=== PATIENT | female | born 1955 | race Caucasian/White ===

== ENCOUNTER 2019-11-22 09:54 | Outpatient (CLI) | payer MEDICAID, SELFPAY ==
--- NOTE | 2019-11-22 | XR_ITS ---
WS: [id number] Left knee, 3 views, 11/22/2019 Clinical Data: ACUTE MENISCAL TEAR LATERAL LEFT Comparison: None. Findings: No fractures or dislocations are seen. The joint spaces are normal. The patella is intact. The soft t issues are unremarkable. XR/XR knee LT 3V* [id number] Impression: Negative left knee.
--- NOTE | 2019-11-22 | XR_ITS ---
WS: [id number] Left femur and thigh, 11/22/2019 Clinical Data: ACUTE MENISCAL TEAR LATERAL LEFT Comparison: None. Findings: No fractures or dislocations are seen. The soft tissues are normal. The visualized knee shows no abno rmalities. The left hip is unremarkable. XR/XR femur LT min 2V* [id number] Impression: Negative left femur and thigh.
== END 2019-11-22 09:55 | disposition home or self-care (01) ==
LOC: RADOUTREAD 10:30
PROVIDERS: Family Provider Family Medicine; Visit Provider Family Medicine
DX: S83.282A Other tear of lateral meniscus, current injury, left knee, initial encounter (principal); W19.XXXA Unspecified fall, initial encounter

== ENCOUNTER 2020-08-28 15:11 | Outpatient (CLI) | payer MEDICAID, SELFPAY ==
--- NOTE | 2020-08-28 15:17 | XR_ITS ---
WS: [id number] SCREENING DEXA SCAN [employer] CLINICAL INFORMATION: OSTEOPOROSIS COMPARISON: None. FINDINGS: The L1-L4 bone mineral density measures 1.002 g/cm2. This corresponds to a T score score of -1.5 and Z score of -1.1. Left femoral neck bone mineral density measures 0.834 g/cm2. This corresponds to a T score of -1.4 an d Z score of -1.0. Right femoral neck bone mineral density measures 0.827 g/cm2. This corresponds to a T score -1.4of an d Z score of -1.1. Mean femoral neck bone mineral density measures 0.830 g/cm2. This corresponds to a T score of -1.4 an d Z score of -1.0. XR/XR DEXA axial skeleton* [id number] IMPRESSION: Osteopenia Patient's FRAX calculated 10 year probability for major osteoporotic fracture i s 33.3 % and osteoporotic hip fracture is 4.7%.
== END 2020-08-28 15:12 | disposition home or self-care (01) ==
LOC: RADWPI 15:13
PROVIDERS: Family Provider Family Medicine; Visit Provider Family Medicine
DX: M81.0 Age-related osteoporosis without current pathological fracture (principal)
CPT/HCPCS: 77080

== ENCOUNTER 2021-02-28 06:39 | Emergency (ER) | payer MEDICAID, SELFPAY ==
[2021-02-28] VITALS (7 sets, daily range): BP systolic 131–190; BP diastolic 88–128; PULSE 95–114; RESP 18–25; TEMP 36.4–37.2; O2SAT 92–99; BMI 48.9
--- NOTE | 2021-02-28 06:41 | ECG_ITS ---
[facility] Test Date: 2021-02-28 Pat Name: Vera Wolfe Department: Room: Gender: Female [employer]ile[employer]: : 1955 Requested By: Bret Bustos Order Number: [id number] Reading MD: OLIVIER ROMO Measurements Intervals [place] Rate: 116 P: 62 SC: 96 QRS: -1 QRSD: 93 T: 46 QT: 305 QTc: 424 Interpretive Statements SINUS TACHYCARDIA WITH SHORT SC INTERVAL ABNORMAL RHYTHM ECG No previous ECG available for comparison Electronically Signed On 02-28-2021 20:42:24 CDT by OLIVIER ROMO [id number] f
--- NOTE | 2021-02-28 06:41 | CT_ITS ---
WS: [id number] CT HEAD NONCONTRAST HISTORY: Fall/LOC TECHNIQUE: Contiguous axial imaging performed through the brain in 2.5 mm imaging. Bone and soft tiss ue windows. Sagittal and coronal reformats reviewed. All CT scans at [facility] use at ast one of these dose optimization techniques: automated exposure control; mA and/or kV adjustment pe r patient size (includes targeted exams where dose is matched to clinical indication); or iterative r econstruction. DLP: 851.66 mGy.cm COMPARISON: 11/05/2012 and 12/22/2018 No acute intracranial hemorrhage, midline shift or mass effect. No atrophy or prior infarcts or herniation. Mild chronic microvascular ischemic disease. No prior in farcts. There is streak artifact through the posterior fossa and occipital lobe from the skull. Ventricles: Normal size with no hydrocephalus. No inferior displacement of cerebellar tonsils. Paranasal sinuses: Mild mucoperiosteal thickening in the ethmoid air cells. Mastoid air cells: Well pneumatized. Calvarium and scalp: Skull is intact with no soft tissue edema or swelling. CT/CT head wo con* [id number] IMPRESSION: 1. No acute intracranial hemorrhage or edema. 2. Mild atrophy and chronic ischemic disease.
--- NOTE | 2021-02-28 07:13 | ED_ITS ---
HPI - Syncope General: Chief Complaint: Syncope Stated Complaint: back pain, passing in and out, fall Time Seen by Provider: 02/28/21 06:40 History of Present Illness: HPI narrative: 65-year-old female presents emergency room with complaint of a fall. She got up this morning was feeding her cat essentially lost her balance and slipped she fell backwards landed because of other buttock and her back she denies striking her head there is no loss consciousness she never had any chest pain. States she has been weak a lot lately which she relates to a thyroid problem was recently evaluated by her PCP. She not had any vomiting or diarrhea she is not on any anticoagulants. MD complaint: almost passed out Onset (ago): minute(s) Prodromal symptoms: lightheaded Witnessed: No Context: standing up Injuries sustained associated with event: back Associated symptoms: Deny abdominal pain, chest pain, fever(s), headache(s), lightheadedness, nausea, short of breath, vertigo or weakness Treatments prior to arrival: none Review of Systems Const: Denies: fever(s) ENMT: Denies: throat pain, ear or mastoid pain, nasal discharge or nasal congestion Card: Denies: chest pain or lightheadedness Resp: Denies: dyspnea, productive cough or non-productive cough GI: Denies: abdominal pain or nausea : Denies: flank pain, difficulty voiding, dysuria, urinary frequency or urinary urgency Skin/Breast: Denies: rash or pruritus Neuro: Denies: headache(s) or vertigo PFSH ED PFSH: Family History Son Hypertension Asthma Denies family history of Diabetes CAD (coronary artery disease) Clotting disorder Dementia Hyperlipidemia Psychiatric illness Chronic kidney disease (CKD) Suicide Anesthesia complication Bleeding disorder Family history of premature coronary artery disease Lung disease Cancer Stroke Social History Smoking and tobacco status: never smoked Alcohol intake: never Current occupational status: disabled Physical Exam Const: COMMON NORMALS: no acute distress GENERAL APPEARANCE: cooperative and comfortable ORIENTATION/CONSCIOUSNESS: Yes awake, Yes oriented to person, Yes oriented to place and Yes oriented to time HENMT: COMMON NORMALS: normocephalic, atraumatic and hearing grossly normal bi laterally HEAD & SCALP: normocephalic and atraumatic Neck/C-Spine: COMMON NORMALS: full ROM, no lymphadenopathy, supple and no JVD Resp: COMMON NORMALS: normal respiratory effort, No retractions, No use of accessory muscles and clear to auscultation bilaterally AUSCULTATION: clear to auscultation bilaterally Cardio: COMMON NORMALS: no JVD, regular rate, regular rhythm and No murmurs present (Cardio) RATE: regular rate RHYTHM: regular rhythm GI: COMMON NORMALS: Soft to palpation and No hepatosplenomegaly present AUSCULTATION: Yes normoactive bowel sounds PALPATION: Yes Soft to palpation, No Tenderness to palpation present (GI), No Guarding due to palpation present (GI) and Yes No hepatosplenomegaly present Extremity: COMMON NORMALS: normal to inspection, capillary refill normal, no clubbing, cyanosis or edema, no calf tenderness and no pedal edema Neuro: SENSORIUM/ORIENTATION: Yes oriented to person, Yes oriented to place and Yes oriented to time Skin: COMMON NORMALS: no rashes or lesions noted GENERAL SKIN EXAM: no rashes or lesions noted Course Vital Signs: Vital signs: Vital Signs Temperature 98.9 F 02/28/21 09:38 Pulse Rate 95 02/28/21 09:38 Respiratory Rate 21 H 02/28/21 09:38 Blood Pressure 161/88 02/28/21 09:38 Pulse Oximetry 92 02/28/21 09:38 MDM - Syncope MDM Narrative: Medical decision making narrative: Neurologically intact. CT lumbar spine shows some foraminal stenosis but she has no radicular symptoms at this time most which is low back pain. She does have a lot of arthritic changes in her back we will discharge her home with pain medications have her follow-up with her primary care doctor if she has any problems return to the ER if pain is uncontrollable. Lab Data: Labs: Lab Results 02/28/21 02/28/21 02/28/21 Range/Units 07:15 07:15 07:15 WBC 7.4 (4.0-10.0) 10^3/ uL RBC 5.06 (4.1-5.3) 10^6/u L Hgb 14.2 (11.5-15.3) g/dL Hct 46.0 (37.0-47.0) % MCV 90.9 (81-99) fL MCH 28.1 (28.0-34.0) pg MCHC 30.9 (30.0-36.0) g/dL RDW 14.2 (12.1-15.1) % Plt Count 318 (130-400) 10^3/c mm MPV 9.9 (7.4-10.4) fL Neut % (Auto) 60.8 % Lymph % (Auto) 27.5 % Hanson % (Auto) 8.5 % Eos % (Auto) 1.1 % Baso % (Auto) 0.3 % Neut # (Auto) 4.51 (1.8-7.7) 10^3/u L Lymph # (Auto) 2.0 (0.8-4.8) 10^3/u L Hanson # (Auto) 0.6 (0.2-0.9) 10^3/u L Eos # (Auto) 0.1 (0.0-0.8) 10^3/u L Baso # (Auto) 0.0 (0.0-0.1) 10^3/u L Nucleated RBC % (a uto) 0 % Nucleated RBCs # 0.0 /100WBC Sodium 142 (136-145) mmol/L Potassium 5.2 H (3.5-5.1) mmol/L Chloride 104 (98-107) mmol/L Carbon Dioxide 27 (22-29) mmol/L Anion Gap 16.2 (5-19) BUN 13 (8-23) mg/dL Creatinine 0.7 (0.5-0.9) mg/dL GFR Calculation 84.0 L (90-130) mL/min Glucose 107 (65-115) mg/dL Calculated Osmolal ity 295 (285-295) mOsm/k g Calcium 9.5 (8.5-10.5) mg/dL Total Bilirubin 0.3 (0.15-1.2) mg/dL AST 18 (0-32) U/L ALT 12 (0-33) U/L Alkaline Phosphata se 81 (35-105) IU/L Troponin T Baselin e 6 (0-10) ng/L Troponin T 120 Min [place] (0-10) ng/L Delta Troponin T (0-10) ABS# Total Protein 6.9 (6.6-8.7) g/dL Albumin 4.4 (3.5-5.2) g/dL Globulin 2.5 (1.3-4.6) g/dL Urine Color (Yellow) Urine Appearance (CLEAR) Urine pH (5-7) Ur Specific Gravit y (1.005-1.030) Urine Protein (Negative) Urine Glucose (UA) (Normal) Urine Ketones (Negative) Urine Blood (Negative) Urine Nitrate (Negative) Urine Bilirubin (Negative) Urine Urobilinogen (Negative) mg/dL Ur Leukocyte Jessica ase (Negative) Urine RBC (0-2) /hpf Urine WBC (0-5) /hpf Ur Squamous Epith Cells (0-5) /hpf Amorphous Sediment Urine Bacteria (NONE) /hpf Hyaline Casts /lpf Other Casts /lpf Urine Mucus /hpf 02/28/21 02/28/21 Range/Units 08:25 09:23 WBC (4.0-10.0) 10^3/ uL RBC (4.1-5.3) 10^6/u L Hgb (11.5-15.3) g/dL Hct (37.0-47.0) % MCV (81-99) fL MCH (28.0-34.0) pg MCHC (30.0-36.0) g/dL RDW (12.1-15.1) % Plt Count (130-400) 10^3/c mm MPV (7.4-10.4) fL Neut % (Auto) % Lymph % (Auto) % Hanson % (Auto) % Eos % (Auto) % Baso % (Auto) % Neut # (Auto) (1.8-7.7) 10^3/u L Lymph # (Auto) (0.8-4.8) 10^3/u L Hanson # (Auto) (0.2-0.9) 10^3/u L Eos # (Auto) (0.0-0.8) 10^3/u L Baso # (Auto) (0.0-0.1) 10^3/u L Nucleated RBC % (a uto) % Nucleated RBCs # /100WBC Sodium (136-145) mmol/L Potassium (3.5-5.1) mmol/L Chloride (98-107) mmol/L Carbon Dioxide (22-29) mmol/L Anion Gap (5-19) BUN (8-23) mg/dL Creatinine (0.5-0.9) mg/dL GFR Calculation (90-130) mL/min Glucose (65-115) mg/dL Calculated Osmolal ity (285-295) mOsm/k g Calcium (8.5-10.5) mg/dL Total Bilirubin (0.15-1.2) mg/dL AST (0-32) U/L ALT (0-33) U/L Alkaline Phosphata se (35-105) IU/L Troponin T Baselin e (0-10) ng/L Troponin T 120 Min [place] 6.00 (0-10) ng/L Delta Troponin T 0 (0-10) ABS# Total Protein (6.6-8.7) g/dL Albumin (3.5-5.2) g/dL Globulin (1.3-4.6) g/dL Urine Color Yellow (Yellow) Urine Appearance Hazy A (CLEAR) Urine pH 5 (5-7) Ur Specific Gravit y 1.015 (1.005-1.030) Urine Protein Neg (Negative) Urine Glucose (UA) Norm (Normal) Urine Ketones Negative (Negative) Urine Blood 2+ H (Negative) Urine Nitrate Negative (Negative) Urine Bilirubin Neg (Negative) Urine Urobilinogen Norm (Negative) mg/dL Ur Leukocyte Jessica ase Negative (Negative) Urine RBC 5-10 H (0-2) /hpf Urine WBC 5-10 H (0-5) /hpf Ur Squamous Epith Cells 5-10 H (0-5) /hpf Amorphous Sediment Not Reportable Urine Bacteria 1+ H (NONE) /hpf Hyaline Casts 0-4 H /lpf Other Casts Wbc cast /lpf Urine Mucus 2+ /hpf Discharge Plan Discharge Patient Disposition: Home Clinical Impression: Back pain Condition: Stable Prescriptions: New hydrocodone-acetaminophen 5-325 mg tablet 1 tab PO Q6H PRN (Reason: pain) Qty: 15 RF: 0 tizanidine 4 mg capsule 4 mg PO TID PRN (Reason: muscle spasticity) Qty: 14 RF: 0 diclofenac sodium 75 mg tablet,delayed release (DR/EC) 75 mg PO Q12H PRN (Reason: pain) Qty: 20 RF: 0 No Action telmisartan [Micardis] 80 mg tablet 80 mg PO DAILY RF: 0 albuterol sulfate [Ventolin HFA] 90 mcg/actuation HFA aerosol inhaler 2 puff INHALATION Q6H PRN (Reason: Shortness Of Breath) RF: 0 loratadine 10 mg capsule 10 mg PO DAILY RF: 0 Discharge Orders: Discharge ED (Routine); Ordered 02/28/21 Ordered By: Bret Crowell Referrals: Niko Frankel MD [Primary Care Provider] - Discharge Diet: Usual diet Discharge Activity: Limit activity as instructed Patient Instructions: Acute Low Back Pain (ED), Opioid Safety Activity Restrictions/Additional Instructions: Lifting greater than 10 pounds avoid stooping or bending. Follow-up with your primary care doctor within the week. Coding Level of Care Code ED Instrument Checker for Gamaliel Fwd Exam Comprehensive
[2021-02-28 07:25] LABS: Basophils % 0.3 %; Eosinophils # 0.1 10^3/uL (0.0-0.8); Eosinophils % 1.1 %; Hemoglobin 14.2 g/dL (11.5-15.3); Lymphocytes % 27.5 %; Mean Corpuscular HGB Conc 30.9 g/dL (30.0-36.0); Mean Corpuscular Hemoglobin 28.1 pg (28.0-34.0); Mean Corpuscular Volume 90.9 fL (81-99); Mean Platelet Volume 9.9 fL (7.4-10.4); Monocytes # 0.6 10^3/uL (0.2-0.9); Monocytes % 8.5 %; Neutrophils # 4.51 10^3/uL (1.8-7.7); Neutrophils % 60.8 %; Nucleated Red Blood Cells % 0 %; Platelet Count 318 10^3/cmm (130-400); Red Blood Count 5.06 10^6/uL (4.1-5.3); Red Cell Distribution Width 14.2 % (12.1-15.1); White Blood Count 7.4 10^3/uL (4.0-10.0)
[2021-02-28 07:42] LABS: Alanine Aminotransferase 12 U/L (0-33); Albumin Level 4.4 g/dL (3.5-5.2); Alkaline Phosphatase 81 IU/L (35-105); Blood Urea Nitrogen 13 mg/dL (8-23); Calcium 9.5 mg/dL (8.5-10.5); Carbon Dioxide 27 mmol/L (22-29); Chloride 104 mmol/L (98-107); Globulin 2.5 g/dL (1.3-4.6); Glucose 107 mg/dL (65-115); Osmolality Calculated 295 mOsm/kg (285-295); Sodium 142 mmol/L (136-145); Total Bilirubin 0.3 mg/dL (0.15-1.2); Total Protein 6.9 g/dL (6.6-8.7)
[2021-02-28 07:43] LABS: Troponin(5th) Baseline 6 ng/L (0-10)
[2021-02-28 07:48] LABS: Anion Gap 16.2 (5-19); Aspartate Amino Transferase 18 U/L (0-32); Potassium 5.2 mmol/L (3.5-5.1)
--- NOTE | 2021-02-28 07:55 | CT_ITS ---
WS: [id number] CT LUMBAR SPINE, noncontrast. HISTORY: pain TECHNIQUE: Contiguous 2.5 mm axial imaging are performed. Sagittal and coronal reformats are submitte d and reviewed. All CT scans at [facility] use at least one of these dose optimization te chniques: automated exposure control; mA and/or kV adjustment per patient size (includes targeted exa ms where dose is matched to clinical indication); or iterative reconstruction. IV contrast: None DLP: 2262.35 mGy.cm COMPARISON: None available. Normal posterior lumbar alignment. No fractures or loss of vertebral body height. Small amount of deg enerative air in the SI joints. Mild degenerative disc disease with vacuum disc phenomenon at L5-S1. Mild bilateral facet joint arthritis at L4-5 and L5-S1. Mixed lytic sclerotic lesion in the RIGHT joann um was present on the study of 04/28/2011 with mild increase in size. L1-2: Normal. L2-3: Normal. L3-4: Slight annular disc bulging and mild ligamentum flavum disease. No significant stenosis. L4-5: Mild annular disc bulging. No significant stenosis. L5-S1: Asymmetric osteophytic ridging extending greatest into the LEFT foramen. Vertebral body osteop hyte encroaches upon the central thecal sac and also extends into the LEFT foramen resulting in sever e LEFT foraminal stenosis and mild stenosis on the RIGHT. Visualized retroperitoneum is normal. CT/CT lumbar spine wo con* [id number] IMPRESSION: 1. No acute lumbar spine fracture. 2. Severe LEFT L5-S1 foraminal stenosis predominantly due to osteophyte diseas e. 3. Mixed lytic sclerotic lesion in the RIGHT ilium with only mild increase in size since 2010, favor this is most likely benign due to nonaggressive appearan ce.
[2021-02-28] MEDS: morphine 4 mg/mL SDV 1 mL IVP (08:10)
[2021-02-28] MEDS: ondansetron 2 mg/ML SDV 2 mL 4 MG IVP (08:10)
[2021-02-28 08:56] LABS: Add Urine Microscopic? YES; Bilirubin Urine Neg (Negative); Blood Urine 2+ (Negative); Glucose Urine UA Norm (Normal); Ketones Urine Negative (Negative); Leukocyte Esterase Urine Negative (Negative); Nitrate Urine Negative (Negative); Protein Urine Neg (Negative); Specific Gravity, Urine 1.015 (1.005-1.030); Urine Appearance Hazy (CLEAR); Urine Color Yellow (Yellow); Urobilinogen Urine Norm (Negative); pH Urine 5 (5-7)
[2021-02-28 08:59] LABS: Bacteria Urine 1+ /hpf; Hyaline Casts Urine 0-4 /lpf; Mucus Urine 2+ /hpf
[2021-02-28 09:00] LABS: Add Urine Culture? No; Other Casts Urine WBC CAST /lpf
[2021-02-28 09:46] LABS: Troponin 5 2HR Delta 0 ABS# (0-10)
--- NOTE | 2021-02-28 12:41 | ECG_ITS ---
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
== END 2021-02-28 09:50 | disposition home or self-care (01) ==
PROVIDERS: Emergency Provider Family Medicine; PCP Family Medicine
DX: M54.9 Dorsalgia, unspecified (principal)
CPT/HCPCS: 70450; 72131; 80053; 81001; 84484; 85025; 93005; 96374; 96375; 99284; J2270; J2405

== ENCOUNTER 2021-04-30 09:17 | Outpatient (CLI) | payer MEDICAID, SELFPAY ==
--- NOTE | 2021-04-30 09:24 | NM_ITS ---
WS: [id number] NUCLEAR MEDICINE 24 HOUR I-123 THYROID UPTAKE INDICATION: Graves' disease TECHNIQUE: I-123 24 HOUR THYROID UPTAKE WITH PLANAR IMAGING. 136.9 UCI AGUILA 123. Anterior planar imagi ng is obtained. Patient unable to complete additional imaging due to coughing/choking. COMPARISON: Ultrasound FINDINGS: 24 hour thyroid uptake 30.24% in the upper end of the range. Increased uptake in the left thyroid lob e relative to the right some of which may be due to rotation with left-sided goiter. Thyroid parenchy ma could be followed up with ultrasound. NORMAL 24H THRYOID UPTAKE 8-35% NM/NM thyroid uptake multi [id number] IMPRESSION: Normal 24-hour thyroid uptake at 30.24%
== END 2021-04-30 09:18 | disposition home or self-care (01) ==
LOC: RAD 09:19
PROVIDERS: PCP Family Medicine; Visit Provider Family Medicine
DX: E05.00 Thyrotoxicosis with diffuse goiter without thyrotoxic crisis or storm (principal)
CPT/HCPCS: 78014; A9516

== ENCOUNTER 2021-06-03 13:33 | Outpatient (CLI) | payer MEDICAID, SELFPAY ==
--- NOTE | 2021-06-03 13:43 | MM_ITS ---
WS: [id number] SCREENING DIGITAL MAMMOGRAM WITH CAD HISTORY: SCREENING COMPARISON: 08/03/2018 and 05/08/2016 Bilateral CC and MLO views submitted. Computer aided detection analyzed. Breast composition: There are scattered areas of fibroglandular density. 8mm mass is noted along the inferior LEFT breast near 7:00 at an anterior to middle depth. May have been present on the study fro 2017 but better seen today and slightly larger. Otherwise benign lymph nodes in each breast. MM/[place] [id number] IMPRESSION: BI-RADS: 0-Incomplete: Need additional imaging evaluation FOLLOW UP: Need Additional Imaging LEFT breast: Spot compression views (CC and MLO). True ML. Ultrasound to follow if abnormality persists.
--- NOTE | 2021-06-03 14:34 | XR_ITS ---
WS: [id number] SCREENING DEXA SCAN [facility] CLINICAL INFORMATION: POST MENAPAUSAL COMPARISON: 2019 FINDINGS: The L1-L4 bone mineral density measures 0.997 g/cm2. This corresponds to a T score score of -1.5 and Z score of -1.1. Left femoral neck bone mineral density measures 0.811 g/cm2. This corresponds to a T score of -1.6 an d Z score of -1.1. Right femoral neck bone mineral density measures 0.839 g/cm2. This corresponds to a T score -1.3of an d Z score of -0.9. Mean femoral neck bone mineral density measures 0.825 g/cm2. This corresponds to a T score of -1.4 an d Z score of -1.0. XR/XR DEXA axial skeleton* [id number] IMPRESSION: Osteopenia Patient's FRAX calculated 10 year probability for major osteoporotic fracture i s 25.2 % and osteoporotic hip fracture is 6.3%.
== END 2021-06-03 13:34 | disposition home or self-care (01) ==
LOC: RADSHAW 13:40
PROVIDERS: PCP Family Medicine; Visit Provider Family Medicine
DX: Z12.31 Encounter for screening mammogram for malignant neoplasm of breast (principal); Z78.0 Asymptomatic menopausal state; M85.88 Other specified disorders of bone density and structure, other site
CPT/HCPCS: 77067; 77080

== ENCOUNTER → 2021-08-27 08:49 | Outpatient (BNVA) | payer MEDICAID, SELFPAY | PROVIDERS: PCP Family Medicine; Referring Provider Family Medicine; Visit Provider Internal Medicine | DX: E05.90 Thyrotoxicosis, unspecified without thyrotoxic crisis or storm (principal); R79.89 Other specified abnormal findings of blood chemistry | CPT/HCPCS: 99204 ==

== ENCOUNTER → 2021-10-28 08:28 | Outpatient (BNVA) | payer MEDICAID, SELFPAY | PROVIDERS: PCP Family Medicine; Visit Provider Internal Medicine | DX: R79.89 Other specified abnormal findings of blood chemistry (principal); E04.1 Nontoxic single thyroid nodule; E05.90 Thyrotoxicosis, unspecified without thyrotoxic crisis or storm; Z87.891 Personal history of nicotine dependence | CPT/HCPCS: 99214 ==

== ENCOUNTER 2021-10-31 09:10 | Outpatient (CLI) | payer MEDICAID, SELFPAY ==
[2021-10-31 10:29] LABS: Free T4 Free Thyroxine 1.21 ng/dL (0.82-1.77); Thyroid Stimulating Hormone 0.05 uIU/mL (0.27-4.20)
[2021-11-01 06:59] LABS: T3 Total 129 ng/dL (76-181)
[2021-11-01 11:08] LABS: Thyroid Peroxidase Antobodies 3 IU/mL (<9)
[2021-11-06 22:12] LABS: TSH Receptor Binding Antibody <1.00 IU/L (< OR = 2.00)
== END 2021-10-31 09:11 | disposition home or self-care (01) ==
LOC: LAB 09:14
PROVIDERS: PCP Family Medicine; Visit Provider Internal Medicine
DX: R79.89 Other specified abnormal findings of blood chemistry (principal)
CPT/HCPCS: 36415; 83516; 84439; 84443; 84480; 86376

== ENCOUNTER 2022-01-01 09:31 | Outpatient (CLI) | payer MEDICAID, SELFPAY ==
[2022-01-01 11:49] LABS: Free T4 Free Thyroxine 1.17 ng/dL (0.82-1.77); Thyroid Stimulating Hormone 0.05 uIU/mL (0.27-4.20)
== END 2022-01-01 09:32 | disposition home or self-care (01) ==
LOC: LAB 09:35
PROVIDERS: PCP Family Medicine; Visit Provider Internal Medicine
DX: R79.89 Other specified abnormal findings of blood chemistry (principal)
CPT/HCPCS: 84439; 84443

== ENCOUNTER → 2022-01-16 08:07 | Outpatient (BNVA) | payer MEDICAID, SELFPAY | PROVIDERS: PCP Family Medicine; Visit Provider Internal Medicine | DX: E05.90 Thyrotoxicosis, unspecified without thyrotoxic crisis or storm (principal); E04.1 Nontoxic single thyroid nodule; R79.89 Other specified abnormal findings of blood chemistry; R13.10 Dysphagia, unspecified; Z87.891 Personal history of nicotine dependence | CPT/HCPCS: 99214 ==